=== PATIENT | male | born 1945 | race Caucasian/White ===

== ENCOUNTER 2025-03-21 10:43 | Emergency (ER) | payer MEDICARE ==
[2025-03-21 11:07] LABS: BASOPHILS ABSOLUTE AUTO 0.01 K/uL (0.00-0.20); EOSINOPHILS ABSOLUTE AUTO 0.02 K/uL (0.00-0.50); HEMATOCRIT 32.2 % (39.0-49.0); HEMOGLOBIN 10.5 g/dL (13.1-16.8); IMMATURE GRAN PERCENT AUTO 3.1 % (0.0-0.4); MEAN CORPUSCULAR HEMOGLOBIN 33.7 pg (28.2-33.3); MEAN CORPUSCULAR HGB CONC 32.6 g/dL (31.7-36.0); MEAN CORPUSCULAR VOLUME 103.2 fL (84.0-98.0); MONOCYTES ABSOLUTE AUTO 1.61 K/uL (0.00-1.00); MONOCYTES PERCENT AUTO 2.3 % (2.0-14.0); NEUTROPHILS ABSOLUTE AUTO 65.02 K/uL (1.40-7.00); NEUTROPHILS PERCENT AUTO 91.6 % (45.0-80.0); PLATELET COUNT,PLT 235 K/uL (150-350); RED BLOOD CELL COUNT 3.12 M/uL (4.33-5.41); RED CELL DISTRIBUTION WIDTH 16.8 % (11.2-14.1)
[2025-03-21 11:28] LABS: ALBUMIN 1.9 g/dL (3.4-5.0); ANION GAP 6.4 meq/L (7-15); BILIRUBIN TOTAL 1.4 mg/dL (0.2-1.0); CALCIUM 9.3 mg/dL (8.5-10.1); CARBON DIOXIDE,CO2 26.6 mmol/L (21.0-32.0); CREATININE 1.17 mg/dL (0.51-1.17); EST CRCL DRUG DOSING (CG) 48.65 mL/min; POTASSIUM,K 4.4 mmol/L (3.5-5.1)
[2025-03-21 11:32] LABS: PROTHROMBIN TIME 10.3 SEC (9.0-11.1)
[2025-03-21] MEDS: Dexamethasone 10 MG/ML SDV IVPUSH ONE (12:53)
[2025-03-21] MEDS: Sodium Chloride 0.9% 10 ML Syringe FLUSH PRN (12:53)
== END 2025-03-21 15:50 ==
LOC: LL.ED 10:43
DX: G93.41 Metabolic encephalopathy (principal); C49.9 Malignant neoplasm of connective and soft tissue, unspecified; R90.89 Other abnormal findings on diagnostic imaging of central nervous system; R41.0 Disorientation, unspecified; F03.90 Unspecified dementia, unspecified severity, without behavioral disturbance, psychotic disturbance, mood disturbance, and anxiety
CPT/HCPCS: 36415; 70450; 80053; 84484; 85025; 85610; 85730; 93005; 93010; 96374; 99284; 99285; J1100